=== PATIENT | female | born 1965 ===

== ENCOUNTER 2021-06-08 10:59 | Inpatient (IN) | payer OTHER ==
[~2021-06-08] VITALS: Ht 149.9 cm; Wt 61.2 kg
[2021-06-08] MEDS ORDERED: COZAAR25 MG PO (11:31)
[2021-06-08] MEDS ORDERED: SKYRIZI150 MG/1 M (11:32)
[2021-06-08] MEDS ORDERED: GABAPENTIN100 M2 PO (11:32)
[2021-06-08] MEDS ORDERED: CRESTOR10 MG PO (11:33)
[2021-06-08] MEDS ORDERED: D3 + K2 DOTS 11 EACH PO (11:33)
[2021-06-10] MEDS ORDERED: AMITRIPTYLINE H25 MG (08:03)
[2021-06-10] MEDS ORDERED: OMEPRAZOLE20 MG (08:03)
== END 2021-06-12 16:15 | disposition home or self-care (01) | DRG 330 ==
LOC: O/R 06-10 05:42 → SURH 06-10 05:42
PROVIDERS: ADMIT Colon & Rectal Surgery; ATTEND Colon & Rectal Surgery
PROC: 0DBP4ZZ Excision of Rectum, Percutaneous Endoscopic Approach (ICD-10-PCS; 2021-06-10)
PROC: 0DTN4ZZ Resection of Sigmoid Colon, Percutaneous Endoscopic Approach (ICD-10-PCS; principal; 2021-06-10 13:00)
DX: K57.32 Diverticulitis of large intestine without perforation or abscess without bleeding (principal); K92.1 Melena; I10 Essential (primary) hypertension; L40.8 Other psoriasis; E78.00 Pure hypercholesterolemia, unspecified; Z20.822 Contact with and (suspected) exposure to COVID-19